=== PATIENT | female | born 1985 | race Caucasian/White ===

== ENCOUNTER 2018-02-07 10:04 | Inpatient (IN) ==
[2018-02-07] MEDS ORDERED: CEFAZOLIN PREMIX (MC ONLY) 2 GM/50 ML BAG IV ONE (10:20)
[2018-02-07] MEDS ORDERED: FAMOTIDINE PB 20 MG/50 ML BAG IV ONE (10:20)
[2018-02-07] MEDS ORDERED: CITRIC ACID/SODIUM CITRATE 30ml PO ONE (10:20)
[2018-02-07] MEDS ORDERED: SALINE FLUSH 10ml SYRINGE ONE (10:24)
--- OUTSIDE RECORDS SUMMARY | 2018-02-07 10:24 | External Medical Summary | Continuity of Care Document ---
:1985 Author Organization [facility] Address [address] [place], [place] [id number] Phone Care Team Providers Name Role Phone Sharona Rivero MD Unavailable Unavailable Allergies, Adverse Reactions, Alerts Substance Reaction Severity Status morphine hives Unknown Active Medications Medication Instructions Dosage Effective Dates Status Comments (start - stop) Levemir FlexTouch 100 12 units q pm - Active unit/mL (3 mL) subcutaneous insulin pen hydroxyzine pamoate 50 -2 tablet Q 8 hours - Active mg capsule PRN anxiety sertraline 50 mg take 1 tablet by oral 50 MG - Active tablet route every day Zoloft 25 mg tablet take 1 tablet by oral 25 MG - Active route every day ranitidine 150 mg take 1 tablet by oral 150 MG - Active tablet route every day at bedtime Problems Condition Effective Dates (start - stop) Clinical Status Encntr screen for infections w sexl - mode of transmiss Supervision of other high risk - pregnancies, second trimester Gestational diabetes mellitus in - , diet controlled Previous Low Transverse - 23 weeks gestation of - Suprvsn of preg w poor reprodctv or - obstet hx, second tri Supervision of other high risk - pregnancies, third trimester Previous Low Transverse - 28 weeks gestation of - Other pruritus - 34 weeks gestation of - Suprvsn of preg w poor reprodctv or - obstet hx, first tri Previous Low Transverse - Encntr screen for infections w sexl - mode of transmiss Encounter for screening for oth - infec/parastc diseases Encounter for suprvsn of normal - , first trimester Encounter for screening of - mother 16 weeks gestation of - Suprvsn of preg w poor reprodctv or - obstet hx, second tri Previous Low Transverse - 19 weeks gestation of - Suprvsn of preg w poor reprodctv or - obstet hx, second tri Supervision of other high risk - pregnancies, second trimester Previous Low Transverse - 19 weeks gestation of - Suprvsn of preg w poor reprodctv or - obstet hx, third tri Supervision of other high risk - pregnancies, third trimester Gestational diabetes in , - insulin controlled 33 weeks gestation of - Suprvsn of preg w poor reprodctv or - obstet hx, third tri Gestational diabetes mellitus in - , diet controlled Previous Low Transverse - 30 weeks gestation of - Supervision of other high risk - pregnancies, third trimester Gestational diabetes in , - insulin controlled Previous Low Transverse - 35 weeks gestation of - Supervision of other high risk - pregnancies, third trimester Gestational diabetes in , - insulin controlled Previous Low Transverse - 35 weeks gestation of - Supervision of other high risk - pregnancies, third trimester Gestational diabetes in , - insulin controlled Maternal care for oth - abnormality and damage, unsp 36 weeks gestation of - Supervision of other high risk - pregnancies, third trimester Gestational diabetes in , - insulin controlled 36 weeks gestation of - Supervision of high risk , unsp, second trimester Gestational diabetes mellitus in - , diet controlled Previous Low Transverse - Maternal care for oth - abnormality and damage, unsp 23 weeks gestation of - Gestational diabetes mellitus in - , diet controlled Previous Low Transverse - Maternal care for oth - abnormality and damage, unsp 30 weeks gestation of - Gestational diabetes in , - insulin controlled 33 weeks gestation of - Gestational diabetes in , - insulin controlled Previous Low Transverse - Oth diseases and conditions compl - preg/chldbrth 34 weeks gestation of - Gestational diabetes in , - insulin controlled Previous Low Transverse - 34 weeks gestation of - Oth related conditions, - second trimester Abdominal distension (gaseous) 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 Provider: Health PA, pregnancies, 8 700 [facility] Box third Medical [place], 1522, trimesterGestatio Center [address] [place], nal diabetes in Drive, Medical [place], , Suite Center [id number], insulin 120, Drive [id number] [place], [address], tel:[phone] weeks gestation [place], [id number] [place] [address], [place], [address]. [place]. tel: tel: [phone] Joseluis Felipe Supervision of May-0 [place] Referring In Womens Ultrasound other high risk 7-201 [place]. Provider: Health JESSE, pregnancies, 8 [address] Box third Medical [place], 1522, trimesterGestatio Center [address] [place], nal diabetes in Drive, Medical [place], , Suite Center [id number], insulin 120, Drive [place] controlledMaterna [place], [address], tel:2 l care for oth JAKY [place], abnormality [address], [place], [address]. and damage, [place]. tel: unsp36 weeks tel: [phone] gestation of [id number] Associates [place] Supervision of Apr-3 Sobbing Referring In Womens other high risk 0-201 [place]. Provider: Nitin MOLINA, pregnancies, 8 700 [facility] Box third Medical [place], 1522, trimesterGestatio Center [address] [place], nal diabetes in Drive, [facility], , Suite Center [id number], insulin 120, Drive [place] controlledPreviou [place], [address], tel:2 s Low Transverse [place], C-Kqqnxht77 weeks [address], [place], [address]. gestation of [place]. tel: tel: [phone] Joseluis Felipe Supervision of Apr-3 [place]bing Referring In Womens Ultrasound other high risk 0-201 [place]. Provider: Nitin MOLINA, pregnancies, 8 700 [facility] Box third Medical [place], 1522, trimesterGestatio Center [address] [place], nal diabetes in Drive, Medical [place], , Suite Center [id number], insulin 120, Drive [place] controlledPreviou [place], [address], tel:2 s Low Transverse [place], C-[id number] weeks [address], [place], [address]. gestation of [place]. tel: tel: [phone] Joseluis Hutchins [email or web address] Apr-2 [place] Referring In Womens weeks gestation 4-201 [place]. Provider: Nitin MOLINA, of 8 700 [facility] Box Medical [place], 1522, Center [address] [place], [facility], Medical [place], Suite Center [id number], 120, Drive [place], [address], tel: JAKY [place], 114, [place], [address]. [place]. tel: tel: [phone] Joseluis Felipe Gestational Apr-2 Sobbing Referring In Womens diabetes in Grand[place]. Provider: Nitin MOLINA, , 8 700 [place] [address] insulin Medical [place], 1522, controlledPreviou Center 700 [facility], C-SectionOth Suite Center [id number], diseases and 120, Drive [place] conditions compl [place], [address], tel:+ preg/nisumimk94 JAKY, [place], weeks gestation [address], [place], [address]. of [place]. tel: tel: [phone] Joseluis Felipe Gestational Apr-2 Sobbing Referring In Womens Ultrasound diabetes in [place]. Provider: Nitin MOLINA, , 8 700 [facility] Box insulin Medical [place], 1522, controlledPreviou Center 700 [facility], C-Vvskful16 weeks Suite Center [id number], gestation of 120, Drive [place], [address], tel: [place], 114, [place], [address]. [place]. tel: tel: [phone] Associates [facility] Jackman Apr-1 Hong In Womens Ultrasound [facility]. Nitin MOLINA, [address] [place], [address], [facility], [place], [id number], , [place]. [place] tel: tel: [phone] [facility] [place] Apr-1 [place] In Womens [place]. Nitin MOLINA, 8 700 [address] Medical [address], Center [place], [place], [address] [id number], 120, [place], tel: JAKY, [address], [place]. tel: [phone] [facility] [place]per Suprvsn of preg w Apr-1 Tsang Referring In Womens Ultrasound poor reprodctv or Padmini. Provider: Nitin MOLINA, obstet hx, third [address] Box triSupervision of [place], [place], 1522, other high risk [place], [address] [place], [place], [place], [place], third [id number] [facility] [id number], trimesterGestatio , [place]. Drive nal diabetes in tel: [address], tel:[phone] , [phone] [place], [place], [address]. [id number] tel: weeks gestation [phone] of Associates [facility] Gestational Apr-1 Hong Referring In Womens Ultrasound diabetes in 6 [facility]. Provider: Nitin MOLINA, , [address] Box insulin [place], [place], 1522, [id number] [place], [address] [place], weeks gestation [place], [facility], of [id number] [place] [id number], , [place]. Drive tel: [address], tel: [phone] [place], [address]. tel:[phone] [facility] Felipe [facility] Mar-3 [place] Referring In Womens poor reprodctv or 0-201 [place]. Provider: Nitin MOLINA, obstet hx, third 8 [address] Box triGestational Medical [place], 1522, diabetes mellitus Center [address] [place], in , [facility], diet Suite Center , controlledPreviou 120, Drive [place] s Low Transverse [place], [address], tel:2 C-Bzhxkmb32 weeks [place], [place] [address], [place], [address]. [place]. tel: tel: [phone] Joseluis Felipe Gestational Mar-2 Sobbing Referring In Womens Ultrasound diabetes mellitus 6-201 [place]. Provider: Nitin MOLINA, in , 8 [address] PO Box diet Medical [place], 1522, controlledPreviou Center [address] [place], s Low Transverse [facility], C-SectionMaternal Suite Center , care for oth 120, Drive abnormality [place], [address], tel:2 and damage, [place], unsp30 weeks [address], JAKY, [address]. gestation of [place]. tel: tel: [phone] Joseluis Felipe Nov- Sob[place] Referring In Womens 6-201 [place]. Provider: Nitin MOLINA, 8 700 [facility] Medical [place], 1522, Center [address] [place], Drive, Medical [place], Suite Center [id number], 120, Drive [place], [address], tel: [place], [address], [place], [address]. [place]. tel: tel: [phone] Joseluis Felipe Suprvsn of preg w Nov- Sob[place] Referring In Womens poor reprodctv or 5-201 [place]. Provider: Nitin MOLINA, obstet hx, second 8 700 [facility] triSupervision of Medical [place], 1522, other high risk Center [address] [place], pregnancies, Drive, Medical [place], third Suite Center [id number], trimesterPrevious 120, Drive [place] Low Transverse [place], [address], tel: C-Cqjcfyh34 weeks [place], [place] [address], [place], [address]. [place]. tel: tel: [phone] Joseluis Felipe Supervision of Sob[place] Referring In Womens other high risk 9- [place]. Provider: Nitin MOLINA, pregnancies, 8 700 [facility] second Medical [place], 1522, trimesterGestatio Center [address] [place], nal diabetes Drive, [facility], mellitus in Suite Center , , diet 120, Drive US controlledPreviou [place], [address], tel: s Low Transverse [place], C-Jdaqpwj42 weeks [address], [place], [address]. gestation of [place]. tel: tel: [phone] Joseluis Felipe Gestational Oct- Sobbing Referring In Womens Ultrasound diabetes mellitus 9 [place]. Provider: Nitin MOLINA, in , 8 700 [facility] Box diet Medical [place], 1522, controlledPreviou Center 700 [place], s Low Transverse [facility], [facility], C-SectionMaternal Suite Center , care for oth 120, Drive US abnormality [place], [address], tel: and damage, JAKY [place], unsp23 weeks [address], [place], [address]. gestation of [place]. tel: tel: [phone] [facility] [place] Ot Sep-2 Sobbing Referring In Womens related 4- Grand[place]. Provider: Nitin MOLINA, conditions, 8 [address] Box second trimester Medical [place], 1522, Center [address] [place], [facility], [facility], Suite Center [id number], 120, Drive [place], [address], tel: [place], [address], [place], [address]. [place]. tel: tel: [phone] [facility] [place] Suprvsn of preg w Sep- Sobbing Referring In Womens poor reprodctv or 2- Grandy. Provider: Nitin MOLINA, obstet hx, second 8 [address] PO Box triSupervision of Medical [place], 1522, other high risk Center [address] [place], pregnancies, Drive, [facility], second Suite Center [id number], trimesterPrevious 120, Drive [place] Low Transverse [place], [address], tel: C-Olfvdwy16 weeks [place], [place] [address], [place], [address]. [place]. tel: tel: [phone] [facility] [place] Suprvsn of preg w Sep- Sobbing Referring In Womens Ultrasound poor reprodctv or Grandy. Provider: Nitin MOLINA, obstet hx, second 8 [address] PO Box triPrevious Low Medical [place], 1522, Transverse Center 700 [place], C-Hkbtrey[address], [facility], gestation of Suite Center [id number], 120, Drive [place], [address], tel: [place], [address], [place], [address]. [place]. tel: tel: [phone] [facility] [place] Suprvsn of preg w Sep-0 Sobbing Referring In Womens poor reprodctv or 3- Grandy. Provider: Nitin MOLINA, obstet hx, first 8 [address] PO Box triPrevious Low Medical [place], 1522, Transverse Center [address] [place], C-SectionEncntr [facility], screen for Suite Center [id number], infections w sexl 120, Drive [place] mode of [place], [address], tel:+ transmissEncounte [place], r [place] [address], [place], [address]. for ot [place]. tel: infec/parastc tel: [phone] diseasesEncounter [id number] for suprvsn of normal , first trimesterEncounte r for screening of qrqsoi96 weeks gestation of [facility] [place] Supervision of Aug- Sobbing In Womens high risk 4-201 Grand[place]. Nitin MOLINA, , unsp, 7 700 PO Box second trimester Medical 1522, [facility], [place], Suite [id number], 120, [place], tel: JAKY, [address], [place]. tel: [phone] Joseluis Felipe Encounter for Jun- Sobbing Referring In Womens immunization 6-201 [place]. Provider: Nitin MOLINA, 7 700 [facility] Medical [place], 1522, Center [address] [place] [address], Suite Center [id number], 120, Drive [place], [address], tel: [place], 114, [place], [address]. [place]. tel: tel: [phone] Joseluis Felipe Oct-0 Kadeem In Womens 3-201 Leslie. Nitin MOLINA, 6 700 [address] [place] [facility] [address], [address] [place], [place], 120, , [place], JAKY, tel: [phone] , [place]. 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 Provider: Nitin MOLINA, (routine) w/o abn 6 700 [place] PO Box findingsEncntr Medical Tejinder, 700 1522, screen for [facility] [place], infections w sexl , Dave Center Dr [place], mode of 120, Dave 120, [id number], transmissEncntr [place], screen for [place], tel:+ infections w sexl [phone] [phone]. [id number] mode of , [place]. tel: transmissPap tel: [phone] Smear Screening, [id number] Cervix [facility] [place] Abdominal Feb-0 Felix In Womens distension 2-201 [place]. [place], (gaseous) 6 700 [address] Medical [address], [address] [place], [place], 120, [id number], [facility] [place], tel: [phone] , [place]. tel: [phone] Joseluis Felipe Apr-1 Felix In Womens 4-201 [place]. [facility], 5 700 [address] Medical [address], [address] [place], [place], 120, [id number], [facility] [place], tel: [phone] , [place]. tel: [phone] Family History Family Member Diagnosis Age At Onset Father Hypertension Paternal Grandfather Osteoporosis Father Epilepsy Maternal Grandfather Hypertension Father Thyroid Disorder Maternal Grandmother Thyroid Disorder Paternal Grandfather Cardiovascular Disease Paternal Grandfather Diabetes mellitus Paternal Grandmother Cancer, breast 58 Paternal Grandfather Hypertension Mother Thyroid Disorder Immunizations Vaccine Date Status Comments Tdap completed Source: New Immunization Record Influenza, injectable, completed Source: New Immunization Record quadrivalent, preservative free, 3 yrs or older Influenza, injectable, completed Note: [facility] ; Source: Other quadrivalent, preservative free, Provider 3 yrs or older Payers Payer name Insurance type Covered republican ID Authorization(s) [facility] [id number] [facility] [id number] Social History Type Description Quantity Date Captured Unknown Vital Signs Date / Height Weight BMI Pulse Blood Temperature Respiratory Body Head BMI Time: Rate Pressure Rate Surface Circumference percentile Area Unknown Chief Complaint And Reason For Visit Unknown Chief Complaint And Reason For Visit Reason For Referral Reason For Referral Unknown Plan Of Care Date Type Action Status Appointment Kizzy Abad BOOKED Appointment Kizzy Abad BOOKED Appointment Kizzy Abad BOOKED Appointment Kizzy Abad [facility] [place] [facility] BOOK[place] PPTL Future Order: Radiology Order OB Detailed Complete Ultrasound Ordered ([id number]) Future Order: Radiology Order Biophysical Profile without NST Ordered ([id number]) Future Order: Radiology Order Biophysical Profile without NST Ordered ([id number]) Future Order: Radiology Order Ultrasound, OB Limited ([id number]) Ordered Future Order: Radiology Order Ultrasound OB Follow-up ([id number]) Ordered Future Order: Radiology Order Biophysical Profile without NST Ordered ([id number]) Future Order: Radiology Order Ultrasound OB Follow-up ([id number]) Ordered Future Order: Radiology Order Biophysical Profile without NST Ordered ([id number]) Future Order: Lab Order Pap Smear With HPV Reflex If ASCUS Ordered ([id number]) Date Type Problem Goal Intervention Status Start Date Unknown. History Of Present Illness Encounter Date Complaint History Of Present Illness This patient has no known history of present illness Functional Status Encounter Date Functional Assessment Cognitive Assessment Unknown Medications Administered Medication Instructions Dosage Effective Dates (start - stop) Status Comments Drug Treatment Unknown Instructions Date Instruction Additional Information HIV and other routine tests risk factors identified by history anticipated course of care nutrition and weight gain counseling, special diet toxoplasmosis precautions (cats / raw meat) sexual activity exercise indications for ultrasound influenza vaccine environmental / work hazards travel tobacco (ask, advise, assess, assist and arrange) alcohol illicit / recreational drugs use of any medications (including supplements, vitamins, herbs, OTC drugs) smoking counseling domestic violence seat belt use childbirth classes / hospital facilities hospital registration genetic testing new ob handbook Zika virus assessment & precautions
--- OUTSIDE RECORDS SUMMARY | 2018-02-07 10:25 | External Medical Summary | Continuity of Care Document ---
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 Provider: Health PA, pregnancies, 8 700 [facility] Box third Medical [place], 1522, trimesterGestatio Center [address] [place], nal diabetes in Drive, Medical [place], , Suite Center [id number], insulin 120, Drive [id number] [place], [address], tel:[phone] weeks gestation [place], [address] [place] [address], [place], [address]. [place]. tel: tel: [phone] Joseluis Felipe Supervision of May-0 Sobbing Referring In Womens Ultrasound other high risk 7-201 [place]. Provider: Health JESSE, pregnancies, 8 700 [address] Box third Medical [place], 1522, trimesterGestatio Center [address] [place], nal diabetes in Drive, Medical [place], , Suite Center [id number], insulin 120, Drive [place] controlledMaterna Felipe, [address], tel:2 l care for oth JAKY [place], abnormality [address], [place], [address]. and damage, [place]. tel: unsp36 weeks tel: [phone] gestation of [id number] Associates [place] Supervision of Apr-3 Sobbing Referring In Womens other high risk 0-201 [place]. Provider: Nitin MOLINA, pregnancies, 8 700 [facility] Box third Medical [place], 1522, trimesterGestatio Center [address] [place], nal diabetes in Drive, [facility], , Suite Center [id number], insulin 120, Drive US controlledPreviou [place], [address], tel:2 s Low Transverse [place], C-Vwyidcr13 weeks [address], [place], [address]. gestation of [place]. tel: tel: [phone] Joseluis Felipe Supervision of Apr-3 Sobbing Referring In Womens Ultrasound other high risk 0-201 [place]. Provider: Nitin MOLINA, pregnancies, 8 700 [facility] Box third Medical [place], 1522, trimesterGestatio Center [address] [place], nal diabetes in Drive, Medical [place], , Suite Center [id number], insulin 120, Drive [place] controlledPreviou [place], [address], tel:2 s Low Transverse [place], C-Yzchesv85 weeks [address], [place], [address]. gestation of [place]. tel: tel: [phone] Joseluis Hutchins [email or web address] Apr-2 Sobbing Referring In Womens weeks gestation 4-201 [place]. Provider: Nitin MOLINA, of 8 700 [facility] Box Medical [place], 1522, Center 700 [place], [facility], Medical [place], Suite Center [id number], 120, Drive [place], [address], tel: JAKY [place], 114, [place], [address]. [place]. tel: tel: [phone] Joseluis Felipe Gestational Apr-2 Sobbing Referring In Womens diabetes in [place]. Provider: Nitin MOLINA, , 8 700 [place] PO Box insulin Medical [place], 1522, controlledPreviou Center 700 [facility], C-SectionOth Suite Center [id number], diseases and 120, Drive [place] conditions compl [place], [address], tel:+ preg/aqmbelhj86 JAKY, [place], weeks gestation [address], [place], [address]. of [place]. tel: tel: [phone] Joseluis Felipe Gestational Apr-2 Sobbing Referring In Womens Ultrasound diabetes in [place]. Provider: Nitin MOLINA, , 8 700 [facility] Box insulin Medical [place], 1522, controlledPreviou Center 700 [facility], C-Frgustc26 weeks Suite Center [id number], gestation of 120, Drive [place], [address], tel: [place], 114, [place], [address]. [place]. tel: tel: [phone] Associates [facility] Jackman Apr-1 Hong In Womens Ultrasound [facility]. Nitin MOLINA, [address], [address], [facility], [place], [place], [id number], , [place]. [place] tel: tel: [phone] [facility] [place] Apr-1 Sobbing In Womens [place]. Nitin MOLINA, 8 700 PO Box Medical 1522, [place], [place], [address] [id number], 120, [place] Felipe, tel: JAKY, [address], [place]. tel: [phone] [facility] Gasper Suprvsn of preg w Apr-1 Tsang Referring In Womens Ultrasound poor reprodctv or Padmini. Provider: Nitin MOLINA, obstet hx, third [address] PO Box triSupervision of [place], Sobbing [place], 1522, other high risk [place], [address] [place], pregnancies, [place], Medical [place], third [id number] Ethel [id number], trimesterGestatio , [place]. Drive nal diabetes in tel: [address], tel:[phone] , [id number] [place], [place], [address]. [id number] tel: weeks gestation [phone] of Associates [facility] Gestational Apr-1 Hong Referring In Womens Ultrasound diabetes in 6 [facility]. Provider: Nitin MOLINA, , [address] PO Box insulin [place], Sobbing [place], 1522, [id number] [place], [address] [place], weeks gestation [place], [facility], of [id number] Ethel [id number], , [place]. Drive tel: [address], tel: [phone] [place], [address]. tel:[phone] [facility]uis Felipe [facility] Mar-3 Sobbing Referring In Womens poor reprodctv or 0-201 [place]. Provider: Nitin MOLINA, obstet hx, third 8 700 [address] PO Box triGestational Medical [place], 1522, diabetes mellitus Center 700 [place], in , [facility], diet Suite Center , controlledPreviou 120, Drive [place] s Low Transverse [place], [address], tel:2 C-Gyafien00 weeks [place], [place] [address], [place], [address]. [place]. tel: tel: [phone] Joseluis Felipe Gestational Mar-2 Sobbing Referring In Womens Ultrasound diabetes mellitus 6-201 [place]. Provider: Nitin MOLINA, in , 8 700 [address] PO Box diet Medical [place], 1522, controlledPreviou Center [address] [place], s Low Transverse [facility], C-SectionMaternal Suite Center , care for oth 120, Drive abnormality [place]ipe, [address], tel:2 and damage, [place], unsp30 weeks [address], JAKY, [address]. gestation of [place]. tel: tel: [phone] Joseluis Felipe Nov- Sobbing Referring In Womens 6-201 [place]. Provider: Nitin MOLINA, 8 700 [facility] Medical [place], 1522, Center [address] [place], Drive, Medical [place], Suite Center [id number], 120, Drive [place], [address], tel: [place], [address], [place], [address]. [place]. tel: tel: [phone] Joseluis Felipe Suprvsn of preg w Nov- Sobbing Referring In Womens poor reprodctv or 5-201 [place]. Provider: Nitin MOLINA, obstet hx, second 8 700 [facility] triSupervision of Medical [place], 1522, other high risk Center 700 [place], pregnancies, Drive, Medical [place], third Suite Center [id number], trimesterPrevious 120, Drive [place] Low Transverse [place], [address], tel: C-Khkqmxg97 weeks [place], [place] [address], [place], [address]. [place]. tel: tel: [phone] Joseluis Felipe Supervision of Sobbing Referring In Womens other high risk 9- [place]. Provider: Nitin MOLINA, pregnancies, 8 700 [facility] second Medical [place], 1522, trimesterGestatio Center 700 [place], nal diabetes Drive, [facility], mellitus in Suite Center , , diet 120, Drive US controlledPreviou [place], [address], tel: s Low Transverse [place], C-Egyjhop21 weeks [address], [place], [address]. gestation of [place]. tel: tel: [phone] Joseluis Felipe Gestational Oct- Sobbing Referring In Womens Ultrasound diabetes mellitus 9 [place]. Provider: Nitin MOLINA, in , 8 700 [facility] Box diet Medical [place], 1522, controlledPreviou Center 700 [place], s Low Transverse [facility], [facility], C-SectionMaternal Suite Center , care for oth 120, Drive [place] abnormality [place], [address], tel: and damage, JAKY [place], unsp23 weeks [address], [place], [address]. gestation of [place]. tel: tel: [phone] [facility] [place] Ot Sep-2 Sobbing Referring In Womens related 4- [place]. Provider: Nitin MOLINA, conditions, 8 700 [address] PO Box second trimester Medical [place], 1522, Center 700 [place], [facility], [facility], Suite Center [id number], 120, Drive [place], [address], tel: J[place], [address], [place], [address]. [place]. tel: tel: [phone] [facility] [place] Suprvsn of preg w Sep- Sobbing Referring In Womens poor reprodctv or 2- [place]. Provider: Nitin MOLINA, obstet hx, second 8 700 [address] PO Box triSupervision of Medical [place], 1522, other high risk Center 700 [place], pregnancies, Drive, [facility], second Suite Center [id number], trimesterPrevious 120, Drive [place] Low Transverse [place], [address], tel: C-Gcbnstz08 weeks [place], [place] [address], [place], [address]. [place]. tel: tel: [phone] [facility] [place] Suprvsn of preg w Sep- Sobbing Referring In Womens Ultrasound poor reprodctv or [place]. Provider: Nitin MOLINA, obstet hx, second 8 700 [address] PO Box triPrevious Low Medical [place], 1522, Transverse Center 700 [place], C-[id number] weeks [address], [facility], gestation of Suite Center [id number], 120, Drive [place], [address], tel: J[place]YMat[place], [address], [place], [address]. [place]. tel: tel: [phone] [facility] [place] Suprvsn of preg w Sep-0 Sobbing Referring In Womens poor reprodctv or 3- [place]. Provider: Nitin MOLINA, obstet hx, first 8 700 [address] PO Box triPrevious Low Medical [place], 1522, Transverse Center 700 [place], C-SectionEncntr [facility], screen for Suite Center [id number], infections w sexl 120, Drive [place] mode of [place], [address], tel:+ transmissEncounte [place], [place] for screening [address], [place], [address]. for ot [place]. tel: infec/parastc tel: [phone] diseasesEncounter [phone] for suprvsn of normal , first trimesterEncounte r for screening of [id number] weeks gestation of [facility] [place] Supervision of Aug- Sobbing In Womens high risk 4-201 [place]. Nitin MOLINA, , unsp, 7 700 PO Box second trimester Medical 1522, [facility], [place], Suite [id number], 120, [place] Felipe, tel: JAKY, [address], [place]. tel: [phone] Joseluis Felipe Encounter for Jun- Sobbing Referring In Womens immunization 6-201 [place]. Provider: Nitin MOLINA, 7 700 [facility] Medical [place] L, 1522, Center [address] [place] [address], Suite Center [id number], 120, Drive [place], [address], tel: [place], 114, [place], [address]. [place]. tel: tel: [phone] Joseluis Felipe Oct-0 Kadeem In Womens 3-201 [place]. Nitin MOLINA, 6 700 PO [place] Medical [address], [address] [place], [place], 120, , Felipe, JAKY, tel: [phone] , [place]. 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 Provider: Nitin MOLINA, (routine) w/o abn 6 700 [place] PO Box findingsEncntr Medical Tejinder, 700 1522, screen for [facility] [place], infections w sexl , Dave Center Dr [place], mode of 120, Dave 120, [id number], transmissEncntr [place], screen for [place], [place], tel:+ infections w sexl [phone] [id number]. [id number] mode of , [place]. tel: transmissPap tel: [phone] Smear Screening, [id number] [facility] [place] Abdominal Feb-0 Felix In Womens distension 2-201 [place]. go2 media [place], (gaseous) 6 700 [address] Medical [address], [address] [place], [place], 120, [id number], [facility] [place], tel: [phone] , [place]. tel: [phone] Joseluis Felipe Apr-1 Felix In Womens 4-201 [place]. [facility], 5 700 PO Box Medical [address], [address] [place], [place], 120, [id number], [facility] [place], tel: [phone] , [place]. tel: [phone] Family History Family Member Diagnosis Age At [...] older Payers Payer name Insurance type Covered democrat ID Authorization(s) [facility] [id number] [facility] [id number] Social History Type Description Quantity Date Captured [...] Appointment Kizzy Abad BOOKED Appointment Kizzy Abad [facility] C/S, BOOKED PPTL Future Order: Radiology Order OB Detailed Complete Ultrasound Ordered ([id number]) Future Order: Radiology Order Biophysical Profile without NST Ordered ([id number]) Future Order: Radiology Order Biophysical Profile without NST Ordered ([id number]) Future Order: Radiology Order Ultrasound, OB Limited ([id number]) Ordered Future Order: Radiology Order Ultrasound OB Follow-up ([id number]) Ordered Future Order: Radiology Order Biophysical Profile without NST Ordered ([id number]) Future Order: Radiology Order Ultrasound OB Follow-up ([id number]) Ordered Future Order: Radiology Order Biophysical Profile without NST Ordered ([id number]) Future Order: Lab Order Pap Smear With [...]
--- OUTSIDE RECORDS SUMMARY | 2018-02-07 10:25 | External Medical Summary | Continuity of Care Document ---
:1985 Author Organization [facility] Address [address] [place], [place] [id number] Phone Care Team Providers Name Role Phone Sharona Rievro MD Unavailable Unavailable Allergies, Adverse Reactions, Alerts [...] MG - Active tablet route every day aspirin 81 mg take 1 tablet by oral 81 MG - Active tablet,delayed release route every day Zoloft 25 mg tablet take 1 tablet by oral 25 MG - Active route every day ranitidine 150 mg take 1 tablet by oral 150 MG - Active tablet route every day at bedtime Problems Condition Effective Dates (start - stop) Clinical Status Encntr screen for infections w sexl - mode of transmiss Gestational diabetes in , - insulin controlled [...] - mother 16 weeks gestation of - Supervision of other [...] hx, second tri Previous Low Transverse - weeks gestation of - Suprvsn of preg w poor reprodctv or - obstet hx, second tri Supervision of other high risk - pregnancies, second trimester Previous Low Transverse - weeks gestation of - Suprvsn of preg [...] 35 weeks gestation of - Supervision of high [...] second trimester Abdominal distension (gaseous) Encntr for credit authorizer exam (general) - (routine) w/o abn findings Encntr screen for infections w sexl mode of transmiss Pap Smear Screening, Cervix - Encounter for immunization - Irritable Bowel Syndrome Active Migraines Active Procedures Procedure Date biophys prfl w/o nstress test Results Test Name Date and Time Measure Units Reference Range Abnormal Flag Comments Unknown Advance Directives Directive Yes / No Effective Date File Name Unknown Encounters Encounter Practice Location Reason(s) Diagnoses Date Provider Care Team Description For Visit Members Joseluis Felipe Supervision of [place] Referring In Womens other high risk 0-201 [place]. Provider: Nitin MOLINA, pregnancies, 8 700 [facility] third Medical [place] L, 1522, trimesterGestatio Center [address] [place], nal diabetes in Drive, Medical [place], , Suite Center [id number], insulin 120, Drive [place] controlledPreviou [place], [address], tel: s Low Transverse [place], [phone] C-Usfufxs88 weeks [address], [place], [address]. gestation of [place]. tel: tel: [phone] Joseluis Felipe Supervision of Sobbing Referring In Womens Ultrasound other high risk 0-201 [place]. Provider: Health PA, pregnancies, 8 700 [facility] Box third Medical [place], 1522, trimesterGestatio Center [address] [place], nal diabetes in Drive, Medical [place], , Suite Center , insulin 120, Drive [place] controlledPreviou [place], [address], tel:+ s Low Transverse JAKY, [place], C-Sybljtt88 weeks [address], [place], [address]. gestation of [place]. tel: tel: [phone] Associates [place] [id number] Apr-2 [place] Referring In Womens weeks gestation 4- [place]. Provider: Nitin MOLINA, of 8 700 [facility] Box Medical [place], 1522, Center [address] [place], Drive, Medical [place], Suite Center , 120, Drive [place], [address], tel:+ [place], [address], [place], [address]. [place]. tel: tel: [phone] Joseluis Felipe Gestational Apr-2 [place] Referring In Womens diabetes in [place]. Provider: Health JESSE, , 8 700 [facility] Box insulin Medical [place], 1522, controlledPreviou Center [address] [place], s Low Transverse [facility] [place], C-SectionOth Suite Center , diseases and 120, Drive [place] conditions compl [place], [address], tel:+ preg/neoewskq74 [place], weeks gestation [address], [place], [address]. of [place]. tel: tel: [phone] Joseluis Felipe Gestational Apr-2 [place] Referring In Womens Ultrasound diabetes in [place]. Provider: Health JESSE, , 8 700 [facility] Box insulin Medical [place], 1522, controlledPreviou Center [address] [place], s Low [address]verse [address], [facility], [id number] weeks Suite Center , gestation of 120, Drive [place], [address], tel:+ [place], [address], [place], [address]. [place]. tel: tel: [phone] [facility] Apr-1 [place] In Womens Ultrasound [facility]. Health PA, [address], [address], [place], [place], [place], [id number], , [place]. [place] tel: tel: [phone] Joseluis [place]ipe Apr- Sob[place] In Womens 8- [place]. Health PA, 8 700 [address] Medical [address], Center [place], Drive, [place], [address] [id number], 120, [place], [place]: [place], [address], [place]. tel: [phone] [facility] Suprvsn of preg w Dec- Tsang Referring In Womens Ultrasound poor reprodctv or Padmini. Provider: Nitin MOLINA, obstet hx, third [address] triSupervision of Art, [place], 1522, other high risk [place], [address] [place], pregnancies, [place], [facility], third [id number] [place] [id number], trimesterGestatio , [place]. Drive nal diabetes in tel: [address], tel:2 , [phone] [place], 9[address]773 [place], [address]. [id number] tel: weeks gestation [phone] of [facility] Apr- Hong Referring In Womens Ultrasound diabetes in [facility]. Provider: Health JESSE, , [address] Box insulin Art, [place], 1522, [id number] [place], [address] [place], weeks gestation [place], [facility], of [id number] [place] [id number], , [place]. Drive tel: [address], tel: [phone] [place], 843140 [place], [address]. tel:[phone] Joseluis Felipe Suprvsn of preg w Mar-3 Sobbing Referring In Womens poor reprodctv or 0- [place]. Provider: Health JESSE, obstet hx, third 8 700 [place] [address] Box triGestational Medical [place], 1522, diabetes mellitus Center [address] [place], in , [facility] [place]), [facility], diet [address] [place] [id number], controlledPreviou 120, Drive [place] s Low Transverse [place], [address], tel: C-[id number] weeks [place], [place] [address], [place], [address]. [place]. tel: tel: [phone] Joseluis Felipe Gestational Mar-2 [place] Referring In Womens Ultrasound diabetes mellitus [place]. Provider: Health JESSE, in , 8 700 [facility] diet Medical [place], 1522, controlledPreviou Center 700 [place], s Low Transverse [facility] [place], C-SectionMaternal Suite Center [id number], care for oth 120, Drive [place] abnormality [place], [address], tel: and damage, [place], unsp30 weeks [address], [place], [address]. gestation of [place]. tel: tel: [phone] Joseluis Felipe Nov- [place] Referring In Womens [place]. Provider: Health [place], 8 700 [facility] Medical [place], 1522, Center [address] [place], [facility] [place], Suite Center [id number], 120, Drive [place], [address], tel: [place], [address], [place], [address]. [place]. tel: tel: [phone] Joseluis Felipe Suprvsn of preg w Nov- [place] Referring In Womens poor reprodctv or - [place]. Provider: Nitin MOLINA, obstet hx, second 8 700 [facility] triSupervision of Medical [place], 1522, other high risk Center [address] [place], pregnancies, Drive, [facility], third Suite Center [id number], trimesterPrevious 120, Drive [place] Low Transverse [place], [address], tel:316 C-Gkcjoop45 weeks [place], [place] [address], [place], [address]. [place]. tel: tel: [phone] Joseluis Felipe Supervision of Oct- [place] Referring In Womens other high risk [place]. Provider: Nitin MOLINA, pregnancies, 8 700 [facility] second Medical [place], 1522, trimesterGestatio Center [address] [place], nal diabetes [facility] [place], mellitus in Suite Center , , diet 120, Drive US controlledPreviou [place], [address], tel: s Low Transverse [place] ST[place], C-Pbxrgcq22 weeks [address], [place], [address]. gestation of [place]. tel: tel: [phone] Joseluis Felipe Gestational Oct- [place] Referring In Womens Ultrasound diabetes mellitus [place]. Provider: Nitin MOLINA, in , 8 700 [facility] diet Medical [place], 1522, controlledPreviou Center [address] [place], s Low Transverse [facility], C-SectionMaternal Suite Center , care for oth 120, Drive US abnormality [place], [address], tel: and damage, [place], unsp23 weeks [address], [place], [address]. gestation of [place]. tel: tel: [phone] Joseluis Felipe Ot Sep- [place] Referring In Womens related [place]. Provider: Nitin MOLINA, conditions, 8 700 [facility] Box second trimester Medical [place], 1522, Center [address] [place], [facility] [place], Suite Center [id number], 120, Drive [place], [address], tel: [place], [address], [place], [address]. [place]. tel: tel: [phone] Joseluis Felipe Suprvsn of preg w Sob[place] Referring In Womens poor reprodctv or [place]. Provider: Nitin MOLINA, obstet hx, second 8 700 [facility] Box triSupervision of Medical [place], 1522, other high risk Center [address] [place], pregnancies, Drive, [facility], second Suite Center [id number], trimesterPrevious 120, Drive [place] Low Transverse [place], [address], tel: C-Abeqofr47 weeks [place], [place] [address], [place], [address]. [place]. tel: tel: [phone] Joseluis Felipe Suprvsn of preg w Sep- [place] Referring In Womens Ultrasound poor reprodctv or [place]. Provider: Nitin MOLINA, obstet hx, second 8 700 [place] PO Box triPrevious Low Medical [place], 1522, Transverse Center 700 [place], C-Eixpktz60 weeks [facility], gestation of Suite Center [id number], 120, Drive [place], [address], tel:+[phone] [place], 114, [place], [address]. [place]. tel: tel: [phone] Joseluis Felipe Suprvsn of preg w Ye-0 [place] Referring In Womens poor reprodctv or [place]. Provider: Nitin MOLINA, obstet hx, first 8 700 [place] PO Box triPrevious Low Medical [place], 1522, Transverse Center [address] [place], C-SectionEncntr [facility], screen for Suite Center [id number], infections w sexl 120, Drive [place] mode of [place], [address], tel:+ transmissEncounte [place], [place] [address], [place], [address]. for oth [place]. tel: infec/parastc tel: [phone] diseasesEnccaiter [phone] for suprvsn of normal , first trimesterEncounte r for screening of [id number] weeks gestation of Joseluis Felipe Supervision of Aug- [place] In Womens high risk [place]. Nitin MOLINA, , unsp, 7 700 PO Box second trimester Medical 1522, Center [place], [place], Suite [id number], 120, [place], tel:+[phone] [place], [address], [place]. tel: [phone] Joseluis Felipe Encounter for Jun- [place] Referring In Womens immunization - [place]. Provider: Nitin MOLINA, 7 700 [place] PO Box Medical [place], 1522, Center [address] [place] [address], Suite Center [id number], 120, Drive [place], [address], tel:+[phone] [place], [address], [place], [address]. [place]. tel:316 tel: [phone] Joseluis Felipe Oct-0 Kadeem In Womens 3-201 [place]. Nitin MOLINA, 6 700 [address] Medical [address], [place] [address] [place], [place], 120, [id number], [place], [place], tel:+ [phone] , [place]. tel: [phone] Joseluis Simpson for credit authorizer Nov-2 Tejinder Referring In Womens exam (general) 8-201 [place]. Provider: Health JESSE, (routine) w/o abn 6 700 [place] PO Box findingsEncntr Medical Tejinder, 700 1522, screen for [place] Medical [place], infections w sexl , [facility] [place], mode of 120, Dave 120, [id number], transmissEncntr [place], [place], screen for [place], [place], tel:2 infections w sexl [phone] [id number]. mode of , [place]. tel: transmissPap tel: [phone] Smear Screening, [id number] [facility] [place] Abdominal Oct-0 Felix In Womens distension 2-201 [place]. Health JESSE, (gaseous) 6 700 [address] Medical [address], [place] [address] [place], [facility] [place], 120, [id number], [place], [place], tel:+ [phone] , [place]. tel: [phone] Joseluis [place] Apr-1 Felix In Womens 4-201 [place]. Health JESSE, 5 700 [address] Medical [address], [place] [address] [place], [facility] [place], 120, [id number], [place], [place], tel: [phone] , [place]. tel: [phone] Family History Family Member Diagnosis Age At [...] older Payers Payer name Insurance type Covered alliance party ID Authorization(s) [facility] [id number] [facility] [id number] Social History Type Description Quantity Date Captured [...] Appointment Kizzy Abad BOOKED Appointment Kizzy Abad [facility] [place] [facility] [place], BOOKED PPTL Future Order: Radiology Order Biophysical Profile without NST Ordered ([id number]) Future Order: Radiology Order OB Detailed Complete Ultrasound Ordered ([id number]) Future Order: Radiology Order Biophysical Profile without NST Ordered ([id number]) Future Order: Radiology Order Ultrasound, OB Limited ([id number]) Ordered Future Order: Radiology Order Ultrasound OB Follow-up ([id number]) Ordered Future Order: Radiology Order Ultrasound OB Follow-up ([id number]) Ordered Future Order: Radiology Order Biophysical Profile without NST Ordered ([id number]) Future Order: Lab Order Pap Smear With [...]
--- OUTSIDE RECORDS SUMMARY | 2018-02-07 10:25 | External Medical Summary | Continuity of Care Document ---
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 Provider: Health JESSE, , 8 700 [facility] Box insulin Medical Sobbing L, 1522, controlledPreviou Center [address] [place], s [address], [facility] [place], [id number] weeks Suite Center [id number], gestation of 120, Drive [place], [address], tel: JAK[place], [address], [place], [address]. [place]. tel: tel: [phone] Joseluis [place] Supervision of May-0 Sobbing Referring In Womens other high risk 7-201 [place]. Provider: Health PA, pregnancies, 8 700 [facility] third Medical Sobbing L, 1522, trimesterGestatio Center [address] [place], nal diabetes in Drive, Medical [place], , Suite Center [id number], insulin 120, Drive [place] [id number] [place], [address], tel:+[phone] weeks [place] [address], [place], [address]. [place]. tel: tel: [phone] Joseluis [place] Supervision of May-0 Sobbing Referring In Womens Ultrasound other high risk 7-201 [place]. Provider: Health PA, pregnancies, 8 700 [facility] third Medical Sobbing L, 1522, trimesterGestatio Center [address] [place], nal diabetes in Drive, Medical [place], , Suite Center [id number], insulin 120, Drive [place] controlledMaterna [place], [address], tel:2 l care for oth JAKYMatte[place], abnormality [address], [place], [address]. and damage, [place]. tel: unsp36 weeks tel: [phone] gestation of [id number] [facility] Supervision of Apr-3 Sobbing Referring In Womens other high risk 0-201 [place]. Provider: Health PA, pregnancies, 8 700 [facility] Box third Medical Sobbing L, 1522, trimesterGestatio Center [address] [place], nal diabetes in Drive, Medical [place], , Suite Center [id number], insulin 120, Drive [place] controlledPreviou [place], [address], tel:2 s Low Transverse JAKYMatteo, C-Gmvslcq11 weeks [address], [place], [address]. gestation of [place]. tel: tel: [phone] Joseluis [place] Supervision of Apr-3 Sobbing Referring In Womens Ultrasound other high risk 0-201 [place]. Provider: Health JESSE, pregnancies, 8 700 [facility] third Medical Sobbing L, 1522, trimesterGestatio Center [address] [place], nal diabetes in [facility], [facility], , Suite Center [id number], insulin 120, Drive [place] controlledPreviou [place], [address], tel:+ s Low Transverse JAKY [place], C-[id number] weeks [address], [place], [address]. gestation of [place]. tel: tel: [phone] Joseluis [place] Apr-2 Sobbing In Womens [place]. Health PA, 8 700 Box Medical 1522, Center [place], [facility], [place], [address] [id number], 120, [place], [place], [address], [place]. tel: [phone] Joseluis [place] Other Apr-2 Sobbing Referring In Womens weeks gestation [place]. Provider: Nitin MOLINA, of 8 700 [facility] Medical Sobbing L, 1522, Center [address] [place] [address], Suite Center [id number], 120, Drive [place], [address], tel:+ Matteo [place], [address], [place], [address]. [place]. tel: tel: [phone] Joseluis [place] Gestational Apr-2 Sobbing Referring In Womens diabetes in [place]. Provider: Nitin MOLINA, , 8 700 [facility] insulin Medical Sobbing L, 1522, controlledPreviou Center [address] [place] [address], s Low Transverse [facility], C-SectionOth Suite Center [id number], diseases and 120, Drive [place] conditions compl [place], [address], tel:316 preg/ Matteo [place], [place] [address], [place], [address]. of [place]. tel: tel: [phone] Joseluis [place] Gestational Apr-2 Sobbing Referring In Womens Ultrasound diabetes in [place]. Provider: Nitin MOLINA, , 8 700 [place] PO Box insulin Medical Sobbing L, 1522, controlledPreviou Center 700 [place], s Low Transverse [facility], C-[id number] weeks Suite Center [id number], gestation of 120, Drive [place], [address], tel: [place], [place], [address], [place], [address]. [place]. tel: tel: [phone] [facility] Apr-1 Hong In Womens Ultrasound [place]. Health PA, [address], [address], [place], [place], [place], [id number], , [place]. [place] tel: tel: [phone] [facility] Apr-1 Sobbing In Womens Brendon. Health PA, 8 700 PO Box Medical 1522, Center [place], [facility], [place], [address] [id number], 120, [place], [place], [address], [place]. tel: [phone] [facility] Evelynn of preg w Dec-1 Tsang Referring In Womens Ultrasound poor reprodctv or Padmini. Provider: Nitin MOLINA, obstet hx, third 8 [address] [place] PO Box triSupervision of [place], Sobbing L, 1522, other high risk [place], [address] [place], pregnancies, [place], [facility], third [id number] [place] [id number], trimesterGestatio , [place]. Drive [place] nal diabetes in tel: [address], tel:+2 , [phone] [place], [place], [address]. [id number] tel:+ weeks gestation [phone] of [facility] Gestational Apr-1 Hong Referring In Womens Ultrasound diabetes in [place]. Provider: Health JESSE, , [address] [place] PO Box insulin Art, Sobbing L, 1522, [id number] [place], 700 [place], weeks gestation [place], Medical [place], of [id number] [place] [id number], , [place]. Drive tel: [address], tel: [phone] [place], [address]. tel:[phone] Joseluis Rivasn of preg w Mar-3 Sobbing Referring In Womens poor reprodctv or 0 [place]. Provider: Nitin MOLINA, obstet hx, third 8 700 [facility] Box triGestational Medical Sobbing L, 1522, diabetes mellitus Center [address] [place], in , Drive, [facility], diet Suite Center , controlledPreviou 120, Drive US s Low Transverse [place], [address], tel:+ C-Hlowcyu48 weeks [place], [place] [address], [place], [address]. [place]. tel: tel: [phone] Joseluis [place] Gestational Mar-2 Sobbing Referring In Womens Ultrasound diabetes mellitus [place]. Provider: Nitin MOLINA, in , 8 700 [facility] Box diet Medical Sobbing L, 1522, controlledPreviou Center 700 [place], s Low Transverse [facility], [facility], C-SectionMaternal Suite Center , care for oth 120, Drive [place] abnormality [place], [address], tel: and damage, Matteo [place], unsp30 weeks [address], [place], [address]. gestation of [place]. tel: tel: [phone] Joseluis [place] Mar-1 Sobbing Referring In Womens [place]. Provider: Nitin MOLINA, 8 700 [facility] Medical Sobbing L, 1522, Center [address] [place], [facility], [facility], Suite Center , 120, Drive [place], [address], tel: [place], [address], [place], [address]. [place]. tel: tel: [phone] Joseluis [place] Suprvsn of preg w Mar-1 Sobbing Referring In Womens poor reprodctv or 5-201 [place]. Provider: Nitin MOLINA, obstet hx, second 8 700 [facility] Box triSupervision of Medical Sobbing L, 1522, other high risk Center [address] [place], pregnancies, Drive, Medical [place], third Suite Center [id number], trimesterPrevious 120, Drive [place] Low Transverse [place]teo, [address], tel:+[phone] C-Juvunoo40 weeks [place], [place] [address], JAKY, [address]. [place]. tel: tel: [phone] Joseluis [place] Supervision of Sobbing Referring In Womens other high risk [place]. Provider: Nitin MOLINA, pregnancies, 8 700 [place] PO Box second Medical Sobbing L, 1522, trimesterGestatio Center [address] [place], nal diabetes [address], Medical [place], mellitus in Suite Center [id number], , diet 120, Drive US controlledPreviou [place], [address], tel:+ s Low Transverse Matteo [place], C-Ulrlknx62 weeks [address], [place], [address]. gestation of [place]. tel:316 tel: [phone] Joseluis [place] Gestational Oct- Sobbing Referring In Womens Ultrasound diabetes mellitus [place]. Provider: Nitin MOLINA, in , 8 700 [place] PO Box diet Medical Sobbing L, 1522, controlledPreviou Center 700 [place], s Low [address], [facility], C-SectionMaternal Suite Center , care for oth 120, Drive US abnormality [place], [address], tel: and damage, Matteo [place], unsp23 weeks [address], [place], [address]. gestation of [place]. tel: tel: [phone] Joseluis [place] Ot Sep- Sobbing Referring In Womens related [place]. Provider: Nitin MOLINA, conditions, 8 700 [place] PO Box second trimester Medical Sobbing L, 1522, Center [address] [place], Drive, Medical [place], Suite Center [id number], 120, Drive [place], [address], tel: [place], [address], [place], [address]. [place]. tel: tel: [phone] Joseluis [place] Suprvsn of preg w Sep- Sobbing Referring In Womens poor reprodctv or [place]. Provider: Nitin MOLINA, obstet hx, second 8 700 [place] PO Box triSupervision of Medical Sobbing L, 1522, other high risk Center [address] [place], pregnancies, Drive, Medical [place], second Suite Center [id number], trimesterPrevious 120, Drive [place] Low Transverse [place], [address], tel:+316 C-Zvtgpma32 weeks [place], [place] [address], [place], [address]. [place]. tel: tel: [phone] Joseluis [place] Suprvsn of preg w Ye-2 Sobbing Referring In Womens Ultrasound poor reprodctv or 2 [place]. Provider: Nitin MOLINA, obstet hx, second 8 700 [place] PO Box triPrevious Low Medical Sobbing L, 1522, Transverse Center 700 [place], C-[id number] weeks [facility], gestation of Suite Center [id number], 120, Drive [place], [facility] 120, tel: Matte[place], [address], [place], [address]. [place]. tel: tel: [phone] Joseluis [place] Suprvsn of preg w Ye-0 Sobbing Referring In Womens poor reprodctv or 3201 [place]. Provider: Nitin MOLINA, obstet hx, first 8 700 [place] PO Box triPrevious Low Medical Sobbing L, 1522, Transverse Center 700 [place], C-SectionEncntr [facility], screen for Suite Center [id number], infections w sexl 120, Drive US mode of Matteo [facility] 120, tel: transmissEncounte Matteo [place], [place] [address], [place], [address]. for oth [place]. tel: infec/parastc tel: [phone] diseasesEncounter [id number] for suprvsn of normal , first trimesterEncounte r for screening of [id number] weeks gestation of Joseluis [place] Supervision of Aug- Sobbing In Womens high risk 4-201 [place]. Health JESSE, , unsp, 7 700 PO Box second trimester Medical 1522, Center [place], [place], [address] [id number], 120, [place] Matteo, tel: JAKY, [address], [place]. tel: [phone] Joseluis [place] Encounter for Jun- Sobbing Referring In Womens immunization 6-201 [place]. Provider: Nitin MOLINA, 7 700 [place] PO Box Medical Sobbing L, 1522, Center [address] [place] [address], Suite Center [id number], 120, Drive [place], [address], tel:+2 JAKY, [place], [address], [place], [address]. [place]. tel: tel: [phone] Joseluis [place] Oct-0 Kadeem In Womens 3-201 [place]. Health PA, 6 700 PO Box Medical [address], [address], [facility] [place], 120, [id number], [place], [place], tel:[phone] , [place]. 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 Provider: Health PA, (routine) w/o abn 6 700 [place] PO Box findingsEncntr Medical Tejinder, 700 1522, screen for [place] [address]isha [address], infections w sexl , [facility] Dr STARKEY, mode of 120, Dave 120, , transmissEncntr Matteo [place], screen for [place], [place], tel: infections w sexl [phone] [id number]. mode of , [place]. tel: transmissPap tel: [phone] Smear Screening, [id number] [facility] Abdominal Feb-0 Felix In Womens distension 2-201 [place]. Health PA, (gaseous) 6 700 PO Box Medical [address], [address] [place], [facility] [place], 120, [id number], [place], [place], tel: [phone] , [place]. tel: [phone] Joseluis [place] Dec- Isidro In Womens 4-201 [place]. Health JESSE, 5 700 PO Box Medical [address], [address], [facility] [place], 120, [id number], [place], [place], tel:[phone] , [place]. tel: [phone] Family History Family Member Diagnosis Age At [...] older Payers Payer name Insurance type Covered green party ID Authorization(s) [facility] [id number] [facility] [id number] Social History Type Description Quantity Date Captured [...] BOOKED Appointment Kizzy Abad BOOKED Appointment Kizzy Abda [facility] C/S, BOOKED PPTL Future Order: Radiology Order OB Detailed Complete Ultrasound Ordered ([id number]) Future Order: Radiology Order Biophysical Profile without NST Ordered ([id number]) Future Order: Radiology Order Biophysical Profile without NST Ordered ([id number]) Future Order: Radiology Order Ultrasound, OB Limited ([id number]) Ordered Future Order: Radiology Order Ultrasound OB Follow-up ([id number]) Ordered Future Order: Radiology Order Biophysical Profile without NST Ordered ([id number]) Future Order: Radiology Order Biophysical Profile without NST Ordered ([id number]) Future Order: Radiology Order Ultrasound OB Follow-up ([id number]) Ordered Future Order: Radiology Order Biophysical Profile without NST Ordered ([id number]) Future Order: Lab Order Pap Smear With [...]
[2018-02-07] MEDS ORDERED: EPHEDRINE 50mg/ml INJECTION ONE (10:26)
[2018-02-07] MEDS ORDERED: FentaNYL 250 MCG/5 ML INJECTION ONE ×2 (10:28→18:40)
[2018-02-07] MEDS ORDERED: MORPHINE SULFATE PF 5mg/10ml INJ (Duramorph) ONE (10:29)
[2018-02-07] MEDS: LR 1,000 ML IV SCH ×3 (10:29→14:34)
[2018-02-07 10:37] VITALS: BMI 38.4
--- NOTE | 2018-02-07 10:50 | Anesthesia Preoperative Report ---
Anesthesia Epidural/Spinal Rec - Date and Time Date: 02/07/18 Procedure: Plan: Spinal - Vital Signs /Para: G: P: - Medictaions & Allergies Inpatient Medications: Current Medications Cefazolin Sodium/Dextrose (Kefzol Premix ( Only)) 2 gm in 50 mls @ 100 mls/ hr IV PREOP ONE Stop: 02/07/18 10:49 Famotidine/Sodium Chloride (Pepcid Premix) 20 mg in 50 mls @ 100 mls/hr IV PREOP ONE Stop: 02/07/18 10:49 Last Admin: 02/07/18 10:38 Dose: 100 mls/hr Lactated Ringer's (Lactated Ringers) 1,000 mls @ 150 mls/hr IV .Q6H40M [facility] Last Admin: 02/07/18 10:29 Dose: 150 mls/hr Allergies/Adverse Reactions: Allergies Allergy/AdvReac Type Severity Reaction Status Date / Time morphine Allergy Mild Hives Verified 02/07/18 10:42 - Home Medications Home Medications: Home Medications Medication Instructions Recorded Confirmed Type Insulin Detemir [Levemir] 6 units SQ HS 02/03/18 02/07/18 History 21/Iron Fu/Folic Acid 1 each PO DAILY 02/03/18 02/07/18 History [ Complete Caplet] Sertraline [Zoloft] 50 mg PO DAILY 02/03/18 02/07/18 History hydrOXYzine pamoate [Vistaril] 1 cap PO HS 02/03/18 02/07/18 History raNITIdine HCl [Zantac] 150 mg PO PRN PRN 02/07/18 02/07/18 History - Medical History Gastrointestional: Reports: Gastroesophageal Reflux Disease Neuro/Musculoskeletal: Reports: Depression Renal/Endocrine: Reports: Diabetes Mellitus Type 1, Other (GESTATIONAL DIABETES) Other History: Reports: Anesthesia Reactions (HYPOTENSIVE) - Surgical History GI Surgery/Treatments: Reports: Cholecystectomy (2006), Other (ERCP) Reproductive Surgery/Treatment: Reports: Breast Augmentation/Reduction, Section, Other (LEEP) Anesthesia Reactions: None Hx Family Anesthesia Reaction: No History of Motion Sickness: No - Social History Smoking Status: Never smoker Second Hand Exposure: No Substance Use Type: does not use Alcohol Intake Frequency: does not drink Hx Chewing Tobacco Use: No - Pertinent Findings Lab Data: CBC and BMP 02/07/18 10:32 EKG Rhythm: Normal Sinus Rhythm - Physical Exam Respiratory Exam: lungs clear Cardiovascular Exam: regular rate and rhythm, no murmur - Airway Assessment Mallampati Score: II TMD: 3 Fingerbreadths Neck Extension: fair Overall Assessment: no airway concerns - ASA ASA Score: 2 - Discussion Discussion: Discussed risks/options/alternatives of anesthesia and questions answered. Patient consents. Nursing pain assessment noted. Anesthesia Discussion: spouse, family member Attestation Statement: Prior to the delivery of any anesthetic medication, I examined the patient, developed the plan, obtained the patient's consent and discussed the risk and benefits of the procedure with the patient/guardian.
[2018-02-07] MEDS ORDERED: BUPIVACAINE 0.75%/DEXTROSE 8.5% SPINAL 2 ML AMPULE IJ ONE (13:44)
[2018-02-07] MEDS ORDERED: EPINEPHrine 1mg/ml (1:1000) vial ONE (13:44)
[2018-02-07] MEDS ORDERED: GLYCOPYRROLATE 0.4 MG/2 ML INJECTION ONE (14:01)
[2018-02-07] MEDS ORDERED: OXYTOCIN BOLUS BAG 30 UNIT/500 ML ML IV SCH (14:30)
[2018-02-07] MEDS ORDERED: NALOXONE 2 MG/2 ML INJECTION PFS IVP PRN ×2 (15:26→16:02)
[2018-02-07] MEDS ORDERED: METOCLOPRAMIDE 10mg/2ml INJECTION IVP PRN (16:02)
[2018-02-07] MEDS ORDERED: DiphenhydrAMINE 50 MG/ML INJECTION IVP PRN (16:02)
[2018-02-07] MEDS ORDERED: NALBUPHINE 10 MG/ML INJECTION IVP PRN (16:02)
[2018-02-07] MEDS ORDERED: ONDANSETRON 4 MG/2 ML INJECTION IVP PRN (16:02)
[2018-02-07] MEDS ORDERED: MEASLES-MUMPS-RUBELLA VACCINE 0.5ml INJECTION SQ ONE (16:50)
[2018-02-07] MEDS ORDERED: DiphenhydrAMINE 25 MG CAPSULE PO PRN (16:50)
[2018-02-07] MEDS ORDERED: HYDROCORTISONE 2.5% CREAM 30gm RECTALLY PRN (16:50)
[2018-02-07] MEDS ORDERED: ACETAMINOPHEN 500 MG TABLET PO PRN (16:50)
[2018-02-07] MEDS ORDERED: CALCIUM CARBONATE Chewable 500mg TABLET PO PRN (16:50)
[2018-02-07] MEDS ORDERED: SALINE FLUSH 10ml SYRINGE IV PRN (16:50)
[2018-02-07] MEDS: IBUPROFEN 800 MG TABLET PO SCH (16:57)
[2018-02-07] MEDS: Oxycodone/Acetaminophen 5/325 1 TAB PO PRN ×2 (16:58→20:59)
[2018-02-07] MEDS ORDERED: D5LR 1,000 ML IV SCH (17:00)
[2018-02-07] MEDS ORDERED: OXYTOCIN DRIP 30 UNIT/500 ML ML IV SCH (17:00)
--- NOTE | 2018-02-07 18:37 | OB/GYN Progress Note ---
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 - General Date: 02/07/18 POD:: Post Op Check Pain: not controlled Voiding: capps still in place Nausea or Vomiting: No Ambulating: No - Objective Vital Signs: Vital Signs Temp 98.4 F 02/07/18 10:46 Pulse 78 02/07/18 10:46 Resp 18 02/07/18 10:46 BP 127/84 02/07/18 10:46 Pulse Ox 98 02/07/18 10:46 Urine Output: good General: alert and oriented Cardiovascular: regular rate,rhythm Respiratory: non-labored Abdomen: soft Incision: normal (C/S post op Poor pain control secondary to allergy Morphine, Anesthsia to give fentanyl and will start Diliaudid DIRECTOR RIVER RESTORATION ) Laboratory Results: 02/07/18 10:32
[2018-02-07] MEDS ORDERED: HYDROMORPHONE 2 MG/ML INJECTION IVP PRN (18:52)
--- NOTE | 2018-02-07 19:02 | Operative Note ---
Operative Note - Date of Operation Date of Operation: 02/07/18 - General : 4 - Preoperative Diagnosis Previous Section, Gestational Diabetes - Postoperative Diagnosis previous section, Gestational Diabetes - Procedure Repeat, Tubal Ligation - Surgeon Surgeon: Brendon Ruiz DO - Supervisor Farm Equipment Maintenance OB Supervisor Farm Equipment Maintenance: Dm Fierro MD - Anesthesia Anesthesia Provider: Bradford Kam CRNA - Estimated Blood Loss Estimated Blood Loss:: 700 - Findings Findings: viable male - APGARS : 899 - Weight Weight (grams): 2958 - [place] Name Name: Colstin - Description of Procedure Description of Procedure: See dictation
[2018-02-07] MEDS ORDERED: Oxycodone *IR* 5 MG TABLET PO PRN (19:43)
[2018-02-07] MEDS: SERTRALINE 50 MG TABLET PO SCH (20:59)
[2018-02-07] MEDS: SIMETHICONE 80 MG CHEWABLE TABLET PO SCH (20:59)
[2018-02-08] MEDS: Oxycodone/Acetaminophen 5/325 1 TAB PO PRN ×5 (01:43→22:14)
[2018-02-08] MEDS: IBUPROFEN 800 MG TABLET PO SCH ×4 (01:44→22:15)
[2018-02-08] MEDS: LR 1,000 ML IV SCH (02:21)
[2018-02-08] MEDS: SIMETHICONE 80 MG CHEWABLE TABLET PO SCH ×5 (02:24→21:59)
[2018-02-08] MEDS: SIMETHICONE 80 MG CHEWABLE TABLET PO PRN ×2 (04:14→12:42)
--- NOTE | 2018-02-08 07:56 | OB/GYN Progress Note ---
OB-PP Progress Note - General PPD1 POD:: POD1 Maternal Group B Strep: Negative Maternal blood type: A+ Maternal Rubella Status: Not Immune - Subjective Date: 02/08/18 Lochia: Minimal Pain: controlled Voiding: capps still in place Nausea or Vomiting Present: No - Objective Vital Signs: Last Vital Signs Temp 97.7 F 02/08/18 06:00 Pulse 59 L 02/08/18 06:00 Resp 14 02/08/18 06:00 BP 133/70 02/08/18 06:00 Pulse Ox 92 02/08/18 06:00 General: alert and oriented Abdomen: fundus firm, non-tender Incision: dry, dressed Extremities: non-tender Edema: none Laboratory: Laboratory Results - last 24 hr 02/07/18 02/07/18 02/07/18 10:32 10:32 10:32 WBC 11.3 H RBC 4.24 Hgb 12.4 Hct 37.4 MCV 88.2 MCH 29.2 MCHC 33.2 RDW Std Deviation 42.1 Plt Count 203 MPV 11.8 Immature Gran % (Auto) 0.2 Neut % (Auto) 80.9 H Lymph % (Auto) 13.8 L Nye % (Auto) 4.6 Eos % (Auto) 0.4 Baso % (Auto) 0.1 Neut # (Auto) 9.2 H Lymph # (Auto) 1.6 Nye # (Auto) 0.5 Eos # (Auto) 0.0 Baso # (Auto) 0.0 Abs Immat Gran (auto) 0.02 Glucometer 76 Blood Type A Positive Antibody Screen Negative 02/07/18 19:57 WBC 13.2 H RBC 3.80 L Hgb 11.3 L Hct 33.4 L MCV 87.9 MCH 29.7 MCHC 33.8 RDW Std Deviation 41.1 Plt Count 166 MPV 11.7 Immature Gran % (Auto) Neut % (Auto) Lymph % (Auto) Nye % (Auto) Eos % (Auto) Baso % (Auto) Neut # (Auto) Lymph # (Auto) Nye # (Auto) Eos # (Auto) Baso # (Auto) Abs Immat Gran (auto) Glucometer Blood Type Antibody Screen - Assessment Assessment: SP, Repeat C/S, Tubal Ligation - Plan Plan: routine care
--- NOTE | 2018-02-08 09:07 | Operative Note ---
DATE OF SERVICE 02/07/2018 PREOPERATIVE DIAGNOSES 1. Previous section. 2. Gestational diabetes, insulin dependent, poorly-controlled. 3. Desires permanent sterilization. POSTOPERATIVE DIAGNOSES 1. Previous section. 2. Gestational diabetes, insulin dependent, poorly-controlled. 3. Desires permanent sterilization. PROCEDURE 1. Repeat low transverse section via Pfannenstiel incision. 2. tubal ligation. SURGEON Dr. Brendon Ruiz DO WOODWORKING MACHINE FEEDER Dr. Dm Fierro MD ANESTHESIA PROVIDER Bradford Kam CRNA ESTIMATED BLOOD LOSS 700 mL FINDINGS A viable male infant. Apgars were 8/9/9. Weight was 2958. Name was Colstin. Normal-appearing uterus, tubes and ovaries. INDICATIONS FOR PROCEDURE This is a 32-year-old female who had insulin-dependent gestational diabetes that had been increasingly difficult to control. Indication for section was discussed with the previous section and the poorly controlled diabetes. Risks, benefits and alternatives to the procedure were discussed. The patient desired tubal ligation. Risks, benefits and alternatives to procedure were discussed. Questions were elicited and answered. The patient decided to proceed with surgery. DESCRIPTION OF PROCEDURE The patient was taken to the operating room where spinal epidural was obtained without difficulty. She was then prepped and draped in the dorsal supine position with a leftward tilt. A Eason catheter was placed. At this time a Pfannenstiel incision was made and carried through the underlying layers to the fascia where the fascia was incised in the midline. The fascial incision was then extended laterally with the Byrne scissors. Superior aspect of the fascial incision was then grasped with the Sally clamps, elevated and dissected off sharply with the scalpel. Attention was turned to the inferior aspect of the fascial incision which was then dissected off sharply with the Byrne scissors. At this time the peritoneum was entered sharply with the Metzenbaum scissors and the peritoneal incision was extended superiorly and inferiorly with good visualization of the bladder. A bladder blade was inserted and the vesicouterine peritoneum was identified and grasped with the pickups and entered sharply with the Metzenbaum scissors. This incision was extended laterally with the Metzenbaum scissors and the bladder flap was created digitally. The uterine incision was then made in a transverse fashion and the uterine incision was extended laterally with cephalad caudad traction. At this time the 's head was delivered atraumatically followed by the body. The cord was clamped and cut x 2 and the infant was handed to the behavioral analyst who was waiting. The placenta was then delivered manually and the uterus was exteriorized and cleared of all clot and debris. The uterine incision was then repaired with O Monocryl in a running-locked fashion. Excellent hemostasis was noted and attention was turned to the tubal part of the case. The right fallopian tube was identified at the cornua and followed out to the fimbriae. A Janett was placed and a window was made in the mesosalpinx. At this time in the distal section a suture of 3-0 chromic was used to ligate the fallopian tube. In the proximal section another 3-0 chromic was used to ligate the tube and an approximately 3 mm section of tube was removed and sent to Pathology. Attention was turned to the left fallopian tube which was identified and ligated in a similar fashion. Excellent hemostasis was noted at the tubal site and at the hysterotomy site. The uterus was returned to the abdomen and the gutters were cleared of all clot and debris. At this time the peritoneum was repaired with 3-0 Monocryl in a running fashion. The fascia was then repaired with 0 Vicryl in a running fashion. Subcutaneous layer was then closed with 2-0 plain gut in a running fashion and the skin was closed with 4-0 Monocryl and the Prevena wound vac was applied. The patient tolerated the procedure well. Sponge, lap and needle counts were correct x 2 and the patient was taken to recovery room in stable condition. MEHDI
[2018-02-08] MEDS: DOCUSATE CALCIUM 240 MG CAPSULE PO SCH (09:58)
--- NOTE | 2018-02-08 17:20 | Anesthesia Postoperative Note ---
- Date and Time Date: 02/08/18 Time: 17:19 - Status Patient Participated in Evaluation: Patient Participated in Person Vital Signs: Temperature 97.7 F 02/08/18 11:00 Pulse Rate 64 02/08/18 11:00 Respiratory Rate 16 02/08/18 14:41 Blood Pressure 132/73 02/08/18 11:00 Pulse Oximetry 97 02/08/18 11:00 Respiratory Function: Airway Patent Cardiovascular Function: Regular Pulse Mental Status: Alert and Oriented Pain Intensity: 0 Hydration: Taking PO Fluids Complications During Recover: None Apparent - Follow-Up Instructions Instructions: Per Surgeon
[2018-02-08] MEDS: SERTRALINE 50 MG TABLET PO SCH (22:15)
[2018-02-09] MEDS: IBUPROFEN 800 MG TABLET PO SCH ×2 (00:18→11:54)
[2018-02-09] MEDS: Oxycodone/Acetaminophen 5/325 1 TAB PO PRN ×2 (04:43→11:55)
[2018-02-09 08:33] VITALS: RESP 16
[2018-02-09] MEDS: DOCUSATE CALCIUM 240 MG CAPSULE PO SCH (09:10)
[2018-02-09] MEDS: SIMETHICONE 80 MG CHEWABLE TABLET PO SCH (09:10)
[2018-02-09 12:01] VITALS: BP 140/84; PULSE 75; TEMP 98.6; O2SAT 97
--- NOTE | 2018-02-09 12:13 | OB/GYN Progress Note ---
OB-PP Progress Note - General PPD2 POD:: POD2 Maternal Group B Strep: Negative Maternal blood type: A+ Maternal Rubella Status: Not Immune - Subjective Date: 02/09/18 Lochia: Minimal Pain: controlled Voiding: voiding Nausea or Vomiting Present: No - Objective Vital Signs: Last Vital Signs Temp 98.6 F 02/09/18 11:59 Pulse 75 02/09/18 11:59 Resp 16 02/09/18 11:59 BP 140/84 H 02/09/18 11:59 Pulse Ox 97 02/09/18 11:59 Urine Output: good General: alert and oriented Cardiovascular: regular rate,rhythm Respiratory: non-labored Abdomen: fundus firm, non-tender Incision: normal, clean, dry, intact Extremities: non-tender Edema: none - Assessment Assessment: SP, Repeat C/S, Tubal Ligation - Plan Plan: routine care, discharge home
== END 2018-02-09 15:08 | disposition home or self-care (01) | DRG 766 ==
LOC: MC 10:04
PROVIDERS: ADMIT Obstetrics & Gynecology; ATTEND Obstetrics & Gynecology